=== PATIENT | male | born 1960 | race Caucasian/White ===

== ENCOUNTER → 2018-03-16 | Outpatient (CLI) | payer MEDICAID | END | disposition home or self-care (01) | LOC: WOUND 09:02 | PROVIDERS: ATTEND Internal Medicine | DX: S81.802D Unspecified open wound, left lower leg, subsequent encounter (principal); E66.9 Obesity, unspecified; E78.00 Pure hypercholesterolemia, unspecified; M10.9 Gout, unspecified; J45.909 Unspecified asthma, uncomplicated; I10 Essential (primary) hypertension; E78.5 Hyperlipidemia, unspecified; Z68.41 Body mass index [BMI] 40.0-44.9, adult; X58.XXXD Exposure to other specified factors, subsequent encounter | CPT/HCPCS: 99203; 99213 ==

== ENCOUNTER → 2018-03-30 | Outpatient (CLI) | payer MEDICAID | END | disposition home or self-care (01) | LOC: CVU 06:51 | PROVIDERS: ATTEND Internal Medicine | DX: I87.2 Venous insufficiency (chronic) (peripheral) (principal); E78.00 Pure hypercholesterolemia, unspecified | CPT/HCPCS: 93922; 93925; 93970 ==

== ENCOUNTER → 2018-04-06 | Outpatient (CLI) | payer MEDICAID | END | disposition home or self-care (01) | LOC: WOUND 10:40 | PROVIDERS: ATTEND Internal Medicine | DX: S81.802D Unspecified open wound, left lower leg, subsequent encounter (principal); E66.9 Obesity, unspecified; E78.00 Pure hypercholesterolemia, unspecified; M10.9 Gout, unspecified; J45.909 Unspecified asthma, uncomplicated; I10 Essential (primary) hypertension; E78.5 Hyperlipidemia, unspecified; Z68.41 Body mass index [BMI] 40.0-44.9, adult; X58.XXXD Exposure to other specified factors, subsequent encounter | CPT/HCPCS: 99212 ==